=== PATIENT | male | born 1980 | race Caucasian/White ===

== ENCOUNTER 2020-09-27 13:15 | Emergency (ER) | payer OTHER ==
[~2020-09-27 13:15] MED LIST: ALLEGRA ALLERG180 MG PO; APTIOM800 MG PO; BACTRIM DS TAB1 EACH PO; CARAFATE1 GM PO; CEPHALEXIN500 M1 PO; DULCOLAX10 MG PR; FOLIC ACID1 MG PO; HYDROXYZINE PAM50 MG PO; IBUPROFEN800 MG PO; LACTULOSE20 GM/30 M PO; LEXAPRO10 MG PO; MAGNESIUM CITR296 ML PO; MIRALAX17 GM PO; NEURONTIN400 MG PO; PRAVASTATIN SOD40 MG PO; PROTONIX40 MG PO; PROVENTIL HFA6.7 GM INH; SINGULAIR10 MG PO; VENTOLIN/PROVENT2 MG PO; VIMPAT200 MG PO; VISTARIL 50 MG50 MG PO; ZYPREXA20 MG PO; ZYRTEC10 M3 PO; [UNRECOGNIZED DRUG - REMARK] SC
[2020-09-27 14:56] LABS: RED BLOOD COUNT 4.09 M/UL (4.20-5.50); WHITE BLOOD COUNT 5.7 K/UL (4.5-11.0)
[2020-09-27 15:14] LABS: BUN/CREATININE RATIO 10 (0-10)
== END 2020-09-27 19:19 | disposition home or self-care (01) ==
LOC: ER1 13:15
PROVIDERS: Physician Assistant
PROC: 0HQ0XZZ Repair Scalp Skin, External Approach (ICD-10-PCS; principal; 2020-09-27)
DX: G40.909 Epilepsy, unspecified, not intractable, without status epilepticus (principal); S01.01XA Laceration without foreign body of scalp, initial encounter; J45.909 Unspecified asthma, uncomplicated; K21.9 Gastro-esophageal reflux disease without esophagitis; Z88.0 Allergy status to penicillin; Z88.8 Allergy status to other drugs, medicaments and biological substances
CPT/HCPCS: 0240U; 12002; 70450; 71045; 80053; 85025; 99284

== ENCOUNTER 2021-06-03 10:35 | Emergency (ER) | payer OTHER ==
[~2021-06-03] VITALS: Ht 170.2 cm; Wt 70.8 kg
== END 2021-06-03 14:25 | disposition home or self-care (01) ==
LOC: ER1 10:35
DX: U07.1 COVID-19 (principal); J12.82 Pneumonia due to coronavirus disease 2019; I25.10 Atherosclerotic heart disease of native coronary artery without angina pectoris; J45.909 Unspecified asthma, uncomplicated; K21.9 Gastro-esophageal reflux disease without esophagitis; G40.909 Epilepsy, unspecified, not intractable, without status epilepticus; Z88.0 Allergy status to penicillin; Z88.1 Allergy status to other antibiotic agents; Z88.8 Allergy status to other drugs, medicaments and biological substances; Z23 Encounter for immunization
CPT/HCPCS: 71045; 99284; M0243

== ENCOUNTER → 2021-09-20 | Outpatient (CLI) | payer OTHER | LOC: CT 13:28 | DX: K21.9 Gastro-esophageal reflux disease without esophagitis (principal); R63.4 Abnormal weight loss; R91.8 Other nonspecific abnormal finding of lung field; I42.9 Cardiomyopathy, unspecified | CPT/HCPCS: 74160; Q9967 ==

== ENCOUNTER → 2021-12-14 | Outpatient (CLI) | payer OTHER ==
[2021-12-14 08:33] LABS: HEMOGLOBIN 12.5 gm/dl (14.0-17.5); RED BLOOD COUNT 4.42 M/UL (4.20-5.50); WHITE BLOOD COUNT 4.3 K/UL (4.5-11.0)
[2021-12-14 09:03] LABS: BUN/CREATININE RATIO 13 (0-10)
== END ==
LOC: CT 08:12
PROVIDERS: Internal Medicine Hematology & Oncology
DX: D64.9 Anemia, unspecified (principal); R91.8 Other nonspecific abnormal finding of lung field; J90 Pleural effusion, not elsewhere classified
CPT/HCPCS: 36415; 71260; 80053; 85025; Q9967

== ENCOUNTER → 2022-04-01 | Outpatient (CLI) | payer OTHER | LOC: KOH-I 10:32 | DX: R63.4 Abnormal weight loss (principal); R11.0 Nausea; R11.12 Projectile vomiting; K59.00 Constipation, unspecified | CPT/HCPCS: 74150 ==